=== PATIENT | female | born 1995 | race Caucasian/White ===

== ENCOUNTER 2024-01-26 15:50 | Outpatient (CLI) | payer BC, SELFPAY | END 2024-01-26 15:51 | disposition home or self-care (01) | LOC: NFLDREF 01-27 10:24 | PROVIDERS: Visit Provider Obstetrics & Gynecology | DX: O20.9 Hemorrhage in early pregnancy, unspecified (principal) | CPT/HCPCS: 84702; 86850; 86900; 86901 ==

== ENCOUNTER 2024-09-01 12:09 | Outpatient (CLI) | payer BC, SELFPAY ==
--- NOTE | 2024-09-01 12:15 | CRLHL7_ITS ---
For Patients: As a result of the Century Cures Act, medical imaging exams and procedure reports are released immediately into your electronic medical record. You may view this report before your referring provider. If you have questions, please contact your health care provider. OBSTETRICAL ULTRASOUND TRANSVAGINAL ??? FIRST TRIMESTER, 09/01/2024 CLINICAL INDICATION: Dating and viability. LMP: 07/08/2024 WING by LMP: 04/14/2025 Gestational age: 7 weeks 6 days Previous ultrasound: No TECHNIQUE: Real-time astorga-scale imaging of the fetus was performed transvaginal. Transvaginal imaging was performed for better visualization of the fetus and ovaries. FINDINGS: CRL: 1.5 cm, 7 weeks 6 days; WING 04/14/2025 heart rate: 171 BPM Gestational sac: 3.1 cm, appears within normal limits Yolk sac: 2.8 mm, appears within normal limits Right ovary: 2.9 x 1.7 x 1.6 cm Left ovary: 3.3 x 2.5 x 2.7 cm, CL IMPRESSION: 1. Sonographic gestational age of 7 weeks 6 days with sonographic due date of 04/14/2025. 2. Small subchorionic hemorrhage measures 5 x 4 x 4 mm. 3. Corpus luteal cyst of left ovary measures 2.2 x 2.3 x 2.4 cm. ALEJO PRAJAPATI M.D. Diagnostic Radiologist [email or web address] Transcribed: 1:[address]/Dictated by: Alejo Prajapati MD @ 09/02/2024 12:37:00 PM (Electronically Signed)
== END 2024-09-01 12:10 | disposition home or self-care (01) ==
LOC: US 12:09
PROVIDERS: Visit Provider Physician Assistant
DX: Z34.91 Encounter for supervision of normal pregnancy, unspecified, first trimester (principal); O20.9 Hemorrhage in early pregnancy, unspecified; O34.81 Maternal care for other abnormalities of pelvic organs, first trimester; N83.12 Corpus luteum cyst of left ovary; Z3A.01 Less than 8 weeks gestation of pregnancy
CPT/HCPCS: 76817; 83021; 86592; 86703; 86704; 86706; 86762; 86787; 86803; 86850; 86900; 86901; 87086; 87340; 87491; 87591; 87624; 88142

== ENCOUNTER 2024-11-24 12:10 | Outpatient (CLI) | payer BC, SELFPAY ==
--- NOTE | 2024-11-24 12:15 | CRLHL7_ITS ---
For Patients: As a result of the Century Cures Act, medical imaging exams and procedure reports are released immediately into your electronic medical record. You may view this report before your referring provider. If you have questions, please contact your health care provider. OBSTETRICAL ULTRASOUND ??? ANATOMY SURVEY, 11/24/2024 INDICATION: anatomy survey. CLINICAL HISTORY: LMP: 07/08/2024 WING by LMP: 04/14/2025 Gestational age: 19 weeks 6 days TECHNIQUE: Real-time astorga-scale transabdominal imaging of the fetus was performed. PREVIOUS ULTRASOUND: 09/01/2024 FINDINGS: position: Multiple positions Cervix: Visualized Technique: Transabdominal Length of closed cervix: 5.3 cm Placenta position: Posterior Technique: Transabdominal Placenta tip to internal os: 6.4 cm Umbilical cord: 3-vessel cord Placental insertion: Central Amniotic fluid: 5.4 cm SDP (greater than/equal to 2 to less than 8 cm) ANATOMY SURVEY: Observed Structures Cerebellum: Yes; 2.0 cm, 20 weeks 5 days Cisterna magna: Yes; 2.5 mm Nuchal fold: Yes; 3.9 mm Lateral ventricle: Yes; 5.6 mm CSP: Yes Midline falx: Yes Choroid plexus: Yes Spine: Yes Stomach: Yes Abdominal cord insert: es Urinary bladder: Yes Kidneys: Yes Diaphragm: Yes Nose/lips: Yes Orbital view: Yes Profile: Yes Upper extremities: Yes Lower extremities: Yes Hands: Yes Feet: Yes 4-chamber heart: Yes LVOT: Yes RVOT: Yes 3VV: Yes 3VTV: Yes BIOMETRY BPD: 4.8 cm, 20 weeks 3 days, 73.3% HC: 17.5 cm, 20 weeks 0 days, 50.7% AC: 15.9 cm, 21 weeks 0 days, 81.4% FL: 3.4 cm, 20 weeks 4 days, 67.0% FL/AC: 21.09% HC/AC ratio: 1.10 heart rate: 141 bpm age by this ultrasound: 20 weeks 4 days WING by this ultrasound: 04/09/2025 Estimated weight: 372.86 grams (0 pounds 13 ounces) Percentile by WING: 89.3% IMPRESSION: 1) Sonographic gestational age is 20 weeks 4 days and sonographic due date is 04/09/2025. Sonographic age is 5 days ahead of the clinical age. 2) Estimated weight is 89th percentile. Abdominal circumference is 81st percentile. 3) Normal anatomic survey. ALEJO PRAJAPATI M.D. Diagnostic Radiologist [email or web address] Transcribed: 5:[address]/Dictated by: Alejo Prajapati MD @ 11/24/2024 3:46:00 PM (Electronically Signed)
== END 2024-11-24 12:11 | disposition home or self-care (01) ==
LOC: US 12:10
PROVIDERS: Visit Provider Obstetrics & Gynecology
DX: Z34.92 Encounter for supervision of normal pregnancy, unspecified, second trimester (principal); Z3A.19 19 weeks gestation of pregnancy
CPT/HCPCS: 76805

== ENCOUNTER 2025-01-17 14:25 | Outpatient (CLI) | payer BC, SELFPAY | END 2025-01-17 14:26 | disposition home or self-care (01) | LOC: NFLDREF 01-20 09:03 | PROVIDERS: Visit Provider Obstetrics & Gynecology | DX: Z34.93 Encounter for supervision of normal pregnancy, unspecified, third trimester (principal) | CPT/HCPCS: 86592 ==

== ENCOUNTER 2025-02-16 13:51 | Outpatient (CLI) | payer BC, SELFPAY ==
--- NOTE | 2025-02-16 14:00 | CRLHL7_ITS ---
For Patients: As a result of the Cures Act, medical imaging exams and procedure reports are released immediately into your electronic medical record. You may view this report before your referring provider. If you have questions, please contact your health care provider. Indication: BMI <35 ESTIMATED DATE OF DELIVERY (WING): 04/14/2025. Technique: Real-time sonographic images of the pelvis were obtained transabdominally using grayscale, color, and Doppler imaging. Comparison: 11/24/2024. Findings: Placenta: Posterior. No previa. : Number: Single. Position: Cephalic. Cardiac activity: 139 BPM. Amniotic fluid: Single deepest pocket measures 6.4 cm. GROWTH PARAMETER SIZE (cm) ESTIMATED AGE Biparietal diameter: 8.3 33 weeks 3 days Head circumference: 29.8 33 weeks 0 days Abdominal circumference: 29.8 33 weeks 5 days Femur length: 6.5 33 weeks 2 days Average Ultrasound Age (AUA) based on this exam: 33 weeks 3 days. WING based on the AUA from this exam: 04/03/2025. Estimated weight (EFW): 2213 gm +/-332 gm. This corresponds to the 88.2 percentile based on the established WING. HC/AC= 1.0 FL/AC= 21.7% Impression: 1. Single live intrauterine measuring 33 weeks 3 days by ultrasound. 2. Amniotic fluid with single deepest pocket measuring 6.4 centimeter. Dictated by Kel Bradford MD @ 02/16/2025 6:54:49 PM (Electronically Signed)
== END 2025-02-16 13:52 | disposition home or self-care (01) ==
LOC: US 13:51
PROVIDERS: Visit Provider Obstetrics & Gynecology
DX: O99.213 Obesity complicating pregnancy, third trimester (principal); Z68.35 Body mass index [BMI] 35.0-35.9, adult; Z3A.33 33 weeks gestation of pregnancy
CPT/HCPCS: 76816

== ENCOUNTER 2025-03-23 13:52 | Outpatient (CLI) | payer BC, SELFPAY ==
--- NOTE | 2025-03-23 14:00 | CRLHL7_ITS ---
For Patients: As a result of the Cures Act, medical imaging exams and procedure reports are released immediately into your electronic medical record. You may view this report before your referring provider. If you have questions, please contact your health care provider. OB ULTRASOUND BIOPHYSICAL PROFILE CLINICAL HISTORY: High BMI. TECHNIQUE: Real time astorga scale imaging of the fetus was performed. Transabdominal imaging performed. COMPARISON: 02/16/2025, 11/24/2024, 09/01/2024. FINDINGS: LMP: 07/08/2024. WING by LMP: 04/14/2025. GA: 36 weeks 6 days. Gestation: Single. Cervix: Not visualized. Positioning: Vertex. Amniotic Fluid: 7.0 cm SDP. BIOPHYSICAL PROFILE Gross Body Movements: 2 Tone: 2 Respiratory Activity: 2 Amniotic Fluid SDP: 2 Total Score: 8 Placenta: Technique: TA. Placenta Position: Posterior. Dopplers: Heart Rate: 126 bpm. IMPRESSION: Normal biophysical profile score of 8/8. Alejo Don M.D. Diagnostic Radiologist [email or web address] Transcribed: 2:56 pm DW/Dictated by: Alejo Don MD @ 03/23/2025 2:43:00 PM (Electronically Signed)
== END 2025-03-23 13:53 | disposition home or self-care (01) ==
LOC: US 13:52
PROVIDERS: Visit Provider Obstetrics & Gynecology
DX: O99.213 Obesity complicating pregnancy, third trimester (principal); Z68.35 Body mass index [BMI] 35.0-35.9, adult; Z3A.36 36 weeks gestation of pregnancy
CPT/HCPCS: 76819

== ENCOUNTER 2025-03-23 14:25 | Outpatient (CLI) | payer BC, SELFPAY | END 2025-03-23 14:26 | disposition home or self-care (01) | LOC: NFLDREF 14:26 | PROVIDERS: Visit Provider Obstetrics & Gynecology | DX: Z34.83 Encounter for supervision of other normal pregnancy, third trimester (principal) | CPT/HCPCS: 87081; 87653 ==

== ENCOUNTER 2025-03-30 13:47 | Outpatient (CLI) | payer BC, SELFPAY ==
--- NOTE | 2025-03-30 14:00 | CRLHL7_ITS ---
For Patients: As a result of the Century Cures Act, medical imaging exams and procedure reports are released immediately into your electronic medical record. You may view this report before your referring provider. If you have questions, please contact your health care provider. OB ULTRASOUND LMP: 07/08/2024. WING by LMP: 04/14/2025. GA: 37 w, 6 d. Single. Comparison: Ultrasound 03/23/2025, 02/16/2025, 11/24/2024. INDICATION: High BMI. TECHNIQUE: Real time grayscale imaging of the fetus was performed. Transabdominal. CERVIX: Not visualized. POSITIONING: Vertex. AMNIOTIC FLUID: 7.6 cm. SDP (N: greater than 2 x 1 cm) BIOPHYSICAL PROFILE: 2: Gross body movements 2: tone 2: Respiratory activity 2: Amniotic fluid SDP (N: greater than 2 x 1 cm) 8/8: Total score PLACENTA: Technique: Transabdominal. PLACENTA POSITION: Posterior. DOPPLER: heart rate: 155 bpm. BIOMETRY: BPD: 9.3 cm. 37 w, 6 d, 71.3%. HC: 32.7 cm. 37 w, 1 d, 15.6%. AC: 35.7 cm. 39 w, 4 d, 95.8%. FL: 7.3 cm. 37 w, 1 d, 32.9%. FL/AC ratio: 20.3%. HC/AC ratio: 0.9. EFW: 3523g. Weight: 7 lbs., 12 oz. age by this US: 38 w, 0 d. WING by this US: 04/13/2025. Percentile by WING: 78.1%. IMPRESSION: 1. Normal biophysical profile score 8/8. 2. Sonographic gestational age 38 weeks 0 days and sonographic due date 04/13/2025. Good correlation with dates. Normal interval growth. 3. Estimated weight 78th percentile. Abdominal circumference 96th percentile. Alejo Don M.D. Diagnostic Radiologist [email or web address] ONI/luis carlos aldridge/Dictated by: Alejo Don MD @ 03/30/2025 3:08:00 PM (Electronically Signed)
== END 2025-03-30 13:48 | disposition home or self-care (01) ==
LOC: US 13:48
PROVIDERS: Visit Provider Obstetrics & Gynecology
DX: Z68.36 Body mass index [BMI] 36.0-36.9, adult (principal); Z36.89 Encounter for other specified antenatal screening
CPT/HCPCS: 76816; 76819

== ENCOUNTER 2025-04-04 16:09 | Outpatient (CLI) | payer BC, SELFPAY ==
[2025-04-04 16:18] VITALS: PULSE 78; O2SAT 99
[2025-04-04 16:20] VITALS: BP 122/82; PULSE 88
[2025-04-04 16:23] VITALS: PULSE 91; O2SAT 97
[2025-04-04 16:24] VITALS: BMI 42.3
--- NOTE | 2025-04-04 18:56 | PC.OBNST ---
NST Note NST Note Start: 04/04/25 16:21 Freq: ONCE Status: Active Protocol: Document 04/04/25 16:21 [facility] (Rec: 04/04/25 18:56 [facility] [id number]) NST Note 2 Para (# of births) 0 EDC 04/14/25 Gestational Age In 38 Weeks & 4 Days Weeks & Days Patient Presented Vaginal bleeding with Complaint(s) of Reactive Yes Appropriate for Yes Gestational Age RN Case RN Date 04/04/25 Reactive Yes Appropriate for Yes Gestational Age RN Elier RN Date 04/04/25 OB NST charge Yes Complete NST Note Yes via Write Note The provider's electronic signature indicates the NST is reactive/appropriate for gestational age. *Note to provider: If an addendum is required, open the patient's chart and click on the note under the Nurse/Allied Health tab.
== END 2025-04-04 19:00 | disposition home or self-care (01) ==
LOC: OB OUT 16:09 → OB 16:10
PROVIDERS: Visit Provider Obstetrics & Gynecology
DX: O46.93 Antepartum hemorrhage, unspecified, third trimester (principal); Z3A.38 38 weeks gestation of pregnancy
CPT/HCPCS: 59025; G0463

== ENCOUNTER 2025-04-07 13:49 | Outpatient (CLI) | payer BC, SELFPAY ==
--- NOTE | 2025-04-07 14:00 | CRLHL7_ITS ---
For Patients: As a result of the Cures Act, medical imaging exams and procedure reports are released immediately into your electronic medical record. You may view this report before your referring provider. If you have questions, please contact your health care provider. OB ULTRASOUND INDICATION: BMI. WING by LMP: 04/14/2025. GA: 39 w, 0 d. Single. COMPARISON: US 03/30/2025, 03/23/2025, 02/16/2025. TECHNIQUE: Real time astorga scale imaging of the fetus was performed. Transabdominal imaging performed. CERVIX: Not visualized. POSITIONING: Vertex. AMNIOTIC FLUID: 7.2 cm SDP (N: greater than 2 x 1 cm). BIOPHYSICAL PROFILE: Gross body movements: 2. tone: 2. Respiratory activity: 2. Amniotic fluid: 2. SDP (N: greater than 2 x 1 cm) Total score: 8. PLACENTA: Technique: Transabdominal. PLACENTA POSITION: Posterior. DOPPLER: heart rate: 123 bpm. IMPRESSION: Normal biophysical profile 11/18. Alejo Don M.D. Diagnostic Radiologist [email or web address] DIANA/Dictated by: Alejo Don MD @ 04/09/2025 1:44:00 PM (Electronically Signed)
== END 2025-04-07 13:50 | disposition home or self-care (01) ==
LOC: US 13:49
PROVIDERS: Visit Provider Obstetrics & Gynecology
DX: O99.213 Obesity complicating pregnancy, third trimester (principal); Z68.35 Body mass index [BMI] 35.0-35.9, adult; Z3A.39 39 weeks gestation of pregnancy
CPT/HCPCS: 76819